=== PATIENT | male | born 1995 | race Caucasian/White ===

== ENCOUNTER 2023-09-24 08:22 | Emergency (ER) | payer SELFPAY ==
[2023-09-24 08:26] VITALS: BP 140/89; PULSE 63; RESP 16; TEMP 36.6; O2SAT 97
--- NOTE | 2023-09-24 08:30 | ECG_ITS ---
Measurements Intervals Roy Rate: 51 P: -24 DC: 162 QRS: 42 QRSD: 86 T: 55 QT: 430 QTc: 399 Interpretive Statements SINUS BRADYCARDIA POSSIBLE RIGHT VENTRICULAR CONDUCTION DELAY [RSR (QR) IN V1/V2] NONSPECIFIC ST ELEVATION [0.05+ mV ST ELEVATION] NO PREVIOUS ECG AVAILABLE FOR COMPARISON Electronically Signed On 09-24-2023 15:35:38 [employer]BB[employer] by Ernestine Barros M.D.
== END 2023-09-24 12:19 | disposition left against medical advice (07) ==
LOC: ANHED 12:13
PROVIDERS: Emergency Provider Family Medicine
DX: R51.9 Headache, unspecified (principal)
CPT/HCPCS: 93005; 99199